=== PATIENT | male | born 1990 | race Caucasian/White ===

== ENCOUNTER 2018-09-27 08:21 | Emergency (ER) | payer OTHER ==
[~2018-09-27] VITALS: Ht 167.6 cm; Wt 50.8 kg
--- NOTE | 2018-09-27 08:28 | NUR ---
Dr Sommer at the bedside for MSE.
[2018-09-27] MEDS ORDERED: KETOROLAC TROMETHAMINE 30 MG INJ IM ONE (08:45)
[2018-09-27] MEDS ORDERED: KETOROLAC TROMETHAMINE 30 MG INJ ONE (08:49)
[2018-09-27 09:14] LABS: BASOPHILS % (AUTO) 0.5 % (0.0-2.0); EOSINOPHILS % (AUTO) 0.4 % (0.0-7.0); HEMATOCRIT 45.7 % (36.7-47.1); HEMOGLOBIN 15.9 g/dL (12.5-16.3); LYMPHOCYTES # (AUTO) 1.2 K/uL (20.0-40.0); LYMPHOCYTES % (AUTO) 20.5 % (20.5-51.5); MEAN CORPUSCULAR HEMOGLOBIN 30.9 uug (23.8-33.4); MEAN CORPUSCULAR HGB CONC 35 g/dL (32.5-36.3); MEAN CORPUSCULAR VOLUME 88.6 fL (73.0-96.2); MONOCYTES # (AUTO) 0.4 K/uL (2.0-10.0); MONOCYTES % (AUTO) 6.7 % (0.0-11.0); NEUTROPHILS # (AUTO) 4.2 K/uL (1.8-8.9); NEUTROPHILS % (AUTO) 71.9 % (38.5-71.5); PLATELET COUNT (AUTO) 194 K/uL (152-348); RED BLOOD CELL COUNT(AUTO) 5.15 MIL/uL (4.06-5.63); WHITE BLOOD COUNT (AUTO) 5.9 K/uL (3.6-10.2)
--- NOTE | 2018-09-27 09:16 | NUR ---
Pt signed consent for IV contrast, placed in the chart.
[2018-09-27] MEDS ORDERED: IOHEXOL 300MG/ML 100 ML INFUS..BTL ONE (09:17)
[2018-09-27] MEDS ORDERED: IV NORMAL SALINE 250 ML IV ONE (09:17)
[2018-09-27] MEDS ORDERED: SWABABLE VALVE TRANSFER SET EA MC ONE (09:18)
[2018-09-27 09:25] LABS: POTASSIUM 3.5 mmol/L (3.5-5.1)
[2018-09-27] MEDS ORDERED: DIATR MEGLU/DIATRIZOATE SODIUM 30 ML SOLUTION PO ONE (09:30)
[2018-09-27] MEDS ORDERED: DIATR MEGLU/DIATRIZOATE SODIUM 30 ML SOLUTION ONE (09:31)
[2018-09-27 09:40] LABS: BILIRUBIN,DIRECT 0.1 mg/dL (0.0-0.2); BILIRUBIN,TOTAL 0.5 mg/dL (0.2-1.0); TOTAL PROTEIN, SERUM 7.5 g/dL (6.4-8.2)
--- NOTE | 2018-09-27 10:54 | NUR ---
Pt out of ER for Ct.
--- NOTE | 2018-09-27 11:24 | NUR ---
Pt back from Ct , resting in bed. VSS.
[2018-09-27] MEDS ORDERED: HYDROMORPHONE 1 MG/1 ML DISP.SYRIN ONE (11:42)
[2018-09-27] MEDS ORDERED: HYDROMORPHONE 1 MG/1 ML DISP.SYRIN IV ONE (11:45)
--- NOTE | 2018-09-27 12:15 | NUR ---
Dr Sommer at the bedside collabrating w/ pt re chest tube. Pt signed consent for Thoracostomy tube insertion, placed in the chart.
--- NOTE | 2018-09-27 12:33 | NUR ---
Thoravac insertion completed by , pt tolorated well. Vital signs remaines stable.
[2018-09-27] MEDS ORDERED: LIDOCAINE HCL 2% 20 ML VIAL IJ ONE (12:45)
[2018-09-27] MEDS ORDERED: HYDROCODONE/APAP 5-325MG TABLET ONE (13:34)
--- NOTE | 2018-09-27 13:43 | NUR ---
Patient discharged to home in stable conditon. Written and verbal after care instructions given. Patient verbalizes understanding of instructions. Pt left ER w/ steady gait, accompained by friend.
[2018-09-27 13:44] VITALS: BP 109/63
[2018-09-27] MEDS ORDERED: HYDROCODONE/APAP 5-325MG TABLET PO ONE (13:45)
== END 2018-09-27 13:45 | disposition home or self-care (01) ==
LOC: ER 08:23
DX: S32.010A Wedge compression fracture of first lumbar vertebra, initial encounter for closed fracture (principal); J93.9 Pneumothorax, unspecified; V47.5XXA Car driver injured in collision with fixed or stationary object in traffic accident, initial encounter; Y93.89 Activity, other specified; Y92.410 Unspecified street and highway as the place of occurrence of the external cause; Y99.8 Other external cause status
CPT/HCPCS: 32551; 36415; 71045; 71101; 71260; 72072; 72100; 74177; 80048; 80076; 83690; 85025; 85730; 86850; 86900; 86901; 93005; 96372; 96374; 99284; J1170; J1885; Q9967; A4663; J7050; Q9963

== ENCOUNTER 2018-10-07 10:45 | Emergency (ER) | payer OTHER ==
[~2018-10-07] VITALS: Ht 167.6 cm; Wt 54.4 kg
--- NOTE | 2018-10-07 11:03 | NUR ---
PT A/OX4, PRESENTS TO THE ER W/ A DEBBIE-CLOSE THORACIC VENT THAT WAS PLACED ON 09/27/18 POST PNEUMOTHORAX. APPROXIMATELY 15 ML NOTED IN THE DRAIN CHAMBER. DRESSING IS VISIBLY SOILED, BUT REMAINS INTACT. PT DENIES PAIN, C/P, SOB, N/V/D, DIZZINESS, HEADACHE.
--- NOTE | 2018-10-07 11:13 | NUR ---
THORACIC VENT PLACEMENT ON L LATERAL CHEST WALL.
--- NOTE | 2018-10-07 11:13 | NUR ---
BETO AMARAL AT BEDSIDE FOR MSE.
--- NOTE | 2018-10-07 11:23 | NUR ---
TRUE-CLOSE THORACIC VENT REMOVED BY ER AND THORACIC WOUND IMMEDIATELY COVERED W/ AIR-TIGHT DRESSING (XEROFORM, STERILE 4X4 GAUZE, AND FOAM TAPE). NO RESPIRATORY DISTRESS NOTED. PT DENIES PAIN, SOB.
--- NOTE | 2018-10-07 11:35 | NUR ---
PARTS MANAGER AT BEDSIDE.
--- NOTE | 2018-10-07 11:54 | NUR ---
Patient discharged to home in stable conditon. Written and verbal after care instructions given. Patient verbalizes understanding of instructions. PT D/C W/ PRESCRIPTION. ALL BELONGINGS W/ PT. PT SELF-AMBULATED W/O DIFFICULTY.
[2018-10-07 11:55] VITALS: BP 112/66
== END 2018-10-07 11:56 | disposition home or self-care (01) ==
LOC: ER 10:45
DX: Z48.03 Encounter for change or removal of drains (principal); S32.010D Wedge compression fracture of first lumbar vertebra, subsequent encounter for fracture with routine healing; V89.2XXD Person injured in unspecified motor-vehicle accident, traffic, subsequent encounter
CPT/HCPCS: 71045; A4663

== ENCOUNTER 2018-10-09 15:47 | Emergency (ER) | payer OTHER ==
[~2018-10-09] VITALS: Ht 167.6 cm; Wt 54.4 kg
--- NOTE | 2018-10-09 16:03 | NUR ---
Patient discharged to home in stable conditon & brisk steady gait. Written and verbal after care instructions given to patient. Patient verbalizes understanding of instructions.
== END 2018-10-09 16:05 | disposition home or self-care (01) ==
LOC: ER 15:47
DX: Z48.00 Encounter for change or removal of nonsurgical wound dressing (principal)
CPT/HCPCS: A4663